=== PATIENT | female | born 1965 | race Asian ===

== ENCOUNTER 2018-12-06 16:53 | Emergency (ER) | payer OTHER ==
[~2018-12-06] VITALS: Ht 152.4 cm; Wt 53.0 kg
[2018-12-06 16:58] VITALS: BP 136/86
[2018-12-06] MEDS ORDERED: ONDANSETRON ODT 4 MG ONE (17:26)
[2018-12-06] MEDS ORDERED: DEXAMETHASONE 4 MG TABLET ONE (17:26)
[2018-12-06] MEDS ORDERED: ONDANSETRON ODT 4 MG PO ONE (17:30)
[2018-12-06] MEDS ORDERED: DEXAMETHASONE 4 MG TABLET PO ONE (17:30)
--- NOTE | 2018-12-06 18:19 | NUR ---
Discharge instructions discussed with patient and her including when to return to emergency department, verbalize understanding. Prescriptions provided with instruction for use.
== END 2018-12-06 18:21 | disposition home or self-care (01) ==
LOC: ED 18:10
DX: B34.9 Viral infection, unspecified (principal); J02.9 Acute pharyngitis, unspecified
CPT/HCPCS: 71046; 87081; 87880; 99284; Q0162